=== PATIENT | female | born 1975 ===

== ENCOUNTER 2017-12-02 07:26 | Day surgery (SDC) | payer OTHER ==
[2017-12-01 18:34] VITALS: BMI 29.8
[2017-12-02 08:07] VITALS: TEMP 98.5
[2017-12-02] MEDS ORDERED: PROPOFOL 20 ML ONE (09:15)
[2017-12-02] MEDS ORDERED: BETAMET ACET/BETAMET NA PH 30 MG/5 ML VIAL ONE (09:26)
[2017-12-02] MEDS ORDERED: BUPIVACAINE HCL/PF 0.25% (2.5MG/ML) 10 ML VIAL ONE (09:26)
[2017-12-02] MEDS ORDERED: DEXAMETHASONE SOD PHOSPHATE 4 MG/1 ML VIAL ONE (09:26)
[2017-12-02] MEDS ORDERED: LIDOCAINE HCL 1%, 10 MG/ML (20ML VIAL) ONE (09:26)
[2017-12-02] MEDS ORDERED: IOHEXOL 180 MG/1 ML ML IJ ONE (09:30)
[2017-12-02] MEDS ORDERED: DEXAMETHASONE SOD PHOSPHATE 4 MG/1 ML VIAL NR ONE (09:30)
[2017-12-02] MEDS ORDERED: LIDOCAINE HCL 1%, 10 MG/ML (50 mL VIAL) IJ ONE (09:30)
[2017-12-02 11:10] VITALS: BP 113/57; PULSE 90
== END 2017-12-02 11:10 | disposition home or self-care (01) ==
LOC: JASU-SURG 07:26
PROVIDERS: ATTEND Physical Medicine & Rehabilitation
PROC: 3E0R33Z Introduction of Anti-inflammatory into Spinal Canal, Percutaneous Approach (ICD-10-PCS; 2017-12-02)
PROC: B01BZZZ Fluoroscopy of Spinal Cord (ICD-10-PCS; 2017-12-02)
PROC: 3E0R3BZ Introduction of Anesthetic Agent into Spinal Canal, Percutaneous Approach (ICD-10-PCS; principal; 2017-12-02 13:30)
DX: M50.13 Cervical disc disorder with radiculopathy, cervicothoracic region (principal)
CPT/HCPCS: 76000-TC-FY; 84703